=== PATIENT | male | born 1940 | race Caucasian/White ===

== ENCOUNTER 2021-04-05 10:20 | Outpatient (CLI) | payer MEDICARE | END 2021-04-05 10:21 | disposition home or self-care (01) | LOC: TBSIIMAG 10:20 | PROVIDERS: ATTEND Neurological Surgery | DX: M47.22 Other spondylosis with radiculopathy, cervical region (principal); M48.02 Spinal stenosis, cervical region; M43.12 Spondylolisthesis, cervical region | CPT/HCPCS: 72141 ==

== ENCOUNTER 2021-11-09 17:40 | Emergency (ER) | payer MEDICARE ==
[2021-11-09 18:54] LABS: Hemoglobin 13.4 g/dL (14.0-18.0); Mean Corpuscular HGB CONC 32.1 g/dL (32.0-36.0); Mean Corpuscular Hemoglobin 33.7 pg (27.0-31.0); Mean Platelet Volume 7.9 fL (7.4-10.4); Platelet Count 150 thou/uL (130-400); RBC Distribution Width 13.4 % (11.5-14.5); Red Blood Cell (RBC) Count 3.99 mill/uL (4.70-6.10); White Blood Cell (WBC) Count 4.9 thou/uL (4.8-10.8)
[2021-11-09 18:57] LABS: ALT (SGPT) 75 U/L (8-55); AST (SGOT) 44 U/L (5-34); Albumin 3.6 g/dL (3.4-4.8); Alkaline Phosphatase 119 U/L (40-110); Anion Gap 10 mmol/L (10-20); BUN (Urea Nitrogen) 55 mg/dL (8.4-25.7); Bilirubin, Total 1.1 mg/dL (0.2-1.2); CK (CPK) 149 U/L (30-200); Calc. Creatinine Clearance 0 mL/min (70-130); Calcium 9.1 mg/dL (7.8-10.44); Carbon Dioxide 21 mmol/L (23-31); Chloride 113 mmol/L (98-107); Globulin 1.8 g/dL (2.4-3.5); Glucose 94 mg/dL (83-110); Potassium 4.2 mmol/L (3.5-5.1); Protein, Total 5.4 g/dL (5.8-8.1); Sodium 140 mmol/L (136-145)
[2021-11-09 19:11] LABS: #Basophils 0.1 thou/uL (0.0-0.2); #Eosinphils 0.4 thou/uL (0.0-0.7); #Lymphocytes 1.1 thou/uL (1.20-3.40); #Monocytes 0.5 thou/uL (0.11-0.59); #Neutrophils 2.8 thou/uL (1.40-6.50); %Basophils 1.2 % (0.0-1.0); %Lymphocytes 23.1 % (21.0-51.0); %Neutrophils 57.7 % (42.0-75.0); MDiff Complete? YES; Macrocytosis SLIGHT = 6-15 cells (100X) (0-5/hpf); Ovalocytes SLIGHT = 2-5 cells (100X) (0-1/hpf)
== END 2021-11-09 21:19 | disposition short-term general hospital (02) ==
LOC: ERS 17:40
DX: R00.1 Bradycardia, unspecified (principal); I10 Essential (primary) hypertension; E78.00 Pure hypercholesterolemia, unspecified; Z79.899 Other long term (current) drug therapy
CPT/HCPCS: 36415; 71045; 80053; 82550; 83880; 84484; 85025; 93005

== ENCOUNTER 2021-11-15 13:12 | Outpatient (CLI) | payer MEDICARE, OTHER | END 2021-11-15 13:13 | disposition home or self-care (01) | LOC: CT 13:12 | PROVIDERS: ATTEND Nurse Practitioner Family | DX: S10.93XA Contusion of unspecified part of neck, initial encounter (principal) | CPT/HCPCS: 70490 ==

== ENCOUNTER 2021-11-22 16:46 | Inpatient (IN) | payer MEDICARE ==
[2021-11-22] MEDS ORDERED: Ondansetron PF 4 MG/2 ML Vial IVP PRN (21:16)
[2021-11-22] MEDS ORDERED: Acetaminophen 650 MG Suppository PR PRN (21:16)
[2021-11-22] MEDS: fentaNYL Citrate-0.9 % NaCl/PF 100 ML IVPB SCH (21:20)
[2021-11-22] MEDS ORDERED: Morphine 4 MG/ML VIAL SLOW IVP PRN (21:30)
[2021-11-22] MEDS ORDERED: Fentanyl BOLUS 250 ML IVPB PRN (21:30)
[2021-11-22] MEDS ORDERED: Fentanyl CADD 100 ML IV SCH (21:30)
[2021-11-22] MEDS ORDERED: DISCONTINUE PREVIOUS NARCOTIC PAIN MEDICATIONS AND BENZODIAZEPINES FS SCH (21:30)
[2021-11-22] MEDS ORDERED: Lorazepam 2 MG/ML VIAL SLOW IVP PRN (21:30)
[2021-11-22] MEDS ORDERED: Propofol 1,000 MG/100 ML VIAL IV PRN (21:30)
[2021-11-22] MEDS ORDERED: Ventilator Sedation Protocol 1 EACH FS SCH (21:30)
[2021-11-22] MEDS ORDERED: Propofol BOLUS 1,000 MG/100 ML VIAL IV PRN (21:30)
[2021-11-22] MEDS ORDERED: Lactated Ringer's 500 ML IV SCH (22:00)
[2021-11-22 22:02] LABS: Actual Bicarbonate (HCO3a) 18.2 mEq/L (22-28); Base Excess (BEa) -7.6 mEq/L (-2.0 to +3.0); Calcium, Ionized (arterial) 1.03 mmol/L (1.12-1.30); Hemoglobin (Hb) 10.5 g/dL (14.0-18.0); O2 Tension (PaO2), arterial 77.3 mmHg (> 60.0); Potassium - ABG Lab 3.75 mmol/L (3.70-5.30)
[2021-11-22 22:07] LABS: Puncture Site Arterial Line
[2021-11-22] MEDS ORDERED: Meropenem 500 MG in Sodium Chloride 0.9% 100 ML IVPB SCH (22:15)
[2021-11-22] MEDS: Lactated Ringer's 1,000 ML IV SCH (22:40)
[2021-11-22] MEDS: Norepinephrine 8 MG/0.9% NS 250 ML IVPB PRN (22:45)
[2021-11-22] MEDS: Sodium Bicarbonate Tab 325 MG TAB PER TUBE SCH (22:54)
[2021-11-23 04:20] LABS: INR-International Normal Ratio 1.3; PTT 44.9 sec (22.9-36.1); Prothrombin Time 16.2 sec (12.0-14.7)
[2021-11-23 04:25] LABS: ALT (SGPT) 566 U/L (8-55); AST (SGOT) 708 U/L (5-34); Albumin 2.6 g/dL (3.4-4.8); Alkaline Phosphatase 190 U/L (40-110); Anion Gap 25 mmol/L (10-20); BUN (Urea Nitrogen) 76 mg/dL (8.4-25.7); Bilirubin, Total 7.5 mg/dL (0.2-1.2); Calc. Creatinine Clearance 22 mL/min (70-130); Calcium 8.1 mg/dL (7.8-10.44); Carbon Dioxide 17 mmol/L (23-31); Chloride 101 mmol/L (98-107); Globulin 2.1 g/dL (2.4-3.5); Glucose 102 mg/dL (83-110); Potassium 3.8 mmol/L (3.5-5.1); Protein, Total 4.7 g/dL (5.8-8.1); Sodium 139 mmol/L (136-145)
[2021-11-23 04:26] LABS: Band 25 % (5-11); Elliptocytes SLIGHT = 2-5 cells (100X) (0-1/hpf); Lymphocytes 16 % (21-51); MDiff Complete? YES; Macrocytosis SLIGHT = 6-15 cells (100X) (0-5/hpf); Mean Corpuscular HGB CONC 32.9 g/dL (32.0-36.0); Mean Corpuscular Hemoglobin 34.3 pg (27.0-31.0); Mean Platelet Volume 9.2 fL (7.4-10.4); Monocytes 2 % (0-10); Neutrophil 57 % (42-75); Platelet Count 78 thou/uL (130-400); Platelet Morphology Comment Appears Decreased; Polychromasia SLIGHT = 2-3 cells (100X) (0-2/hpf); RBC Distribution Width 13.2 % (11.5-14.5); Red Blood Cell (RBC) Count 2.91 mill/uL (4.70-6.10); Schistocytes SLIGHT = 2-5 cells (100X) (0-1/hpf); White Blood Cell (WBC) Count 8.7 thou/uL (4.8-10.8)
[2021-11-23 04:32] LABS: D-Dimer Test 9.59 *mcg/mL (0.27-0.43)
[2021-11-23] MEDS: Sodium Bicarbonate Tab 325 MG TAB PER TUBE SCH ×3 (06:16→22:28)
[2021-11-23] MEDS ORDERED: Lactated Ringer's 500 ML IV SCH (08:15)
[2021-11-23 08:27] LABS: Actual Bicarbonate (HCO3a) 19.6 mEq/L (22-28); Base Excess (BEa) -5.5 mEq/L (-2.0 to +3.0); CO2 Tension 36.4 mmHg (35.0-45.0); Calcium, Ionized (arterial) 1.03 mmol/L (1.12-1.30); Carboxyhemoglobin (COHb) 0.6 gm% (0.0-3.0); O2 Tension (PaO2), arterial 100.2 mmHg (> 60.0); Potassium - ABG Lab 3.67 mmol/L (3.70-5.30); pH, Arterial 7.35 (7.35-7.45)
[2021-11-23 08:28] LABS: Puncture Site Arterial Line
[2021-11-23] MEDS ORDERED: Famotidine 20 MG TAB PO SCH (09:00)
[2021-11-23] MEDS: cefTRIAXone\\ROCEPHIN 2 GM in Sodium Chloride 0.9% 100 ML IVPB SCH (09:32)
[2021-11-23] MEDS: Pantoprazole 40 MG VIAL IVP SCH (09:34)
[2021-11-23] MEDS ORDERED: Meropenem 500 MG in Sodium Chloride 0.9% 100 ML IVPB SCH (10:00)
[2021-11-23] MEDS: Hydrocortisone Sod Succ/PF 100 mg/2 ml Vial IVP SCH ×2 (11:15→17:23)
[2021-11-23] MEDS: Norepinephrine 8 MG/0.9% NS 250 ML IVPB PRN (11:20)
[2021-11-23] MEDS: Vasopressin 20 UNIT, Admixture Fee 1 EACH in Sodium Chloride 0.9% 50 ML IV SCH ×2 (11:22→17:22)
[2021-11-23 12:01] LABS: Magnesium 1.9 mg/dL (1.6-2.6)
[2021-11-23] MEDS ORDERED: Magnesium 2 GM/50 ML(in water) 2 GM in Premix Bag 1 BAG IVPB SCH (12:15)
[2021-11-23] MEDS ORDERED: Heparin 10,000 UNITS/ 10 ML VIAL ONE (12:37)
[2021-11-23] MEDS: Lactated Ringer's 1,000 ML IV SCH (13:03)
[2021-11-23] MEDS: Acetaminophen 325 MG TAB PO PRN (22:28)
[2021-11-24] MEDS: Hydrocortisone Sod Succ/PF 100 mg/2 ml Vial IVP SCH ×4 (00:24→17:39)
[2021-11-24] MEDS: Vasopressin 20 UNIT, Admixture Fee 1 EACH in Sodium Chloride 0.9% 50 ML IV SCH ×3 (00:25→21:45)
[2021-11-24] MEDS: Lactated Ringer's 1,000 ML IV SCH ×2 (00:25→13:21)
[2021-11-24] MEDS: fentaNYL Citrate-0.9 % NaCl/PF 100 ML IVPB SCH (02:19)
[2021-11-24 04:20] LABS: Hemoglobin 9.5 g/dL (14.0-18.0); Mean Corpuscular Hemoglobin 33.1 pg (27.0-31.0); Platelet Count 71 thou/uL (130-400); RBC Distribution Width 13.3 % (11.5-14.5); Red Blood Cell (RBC) Count 2.86 mill/uL (4.70-6.10); White Blood Cell (WBC) Count 13.7 thou/uL (4.8-10.8)
[2021-11-24 04:37] LABS: ALT (SGPT) 411 U/L (8-55); AST (SGOT) 549 U/L (5-34); Albumin 2.4 g/dL (3.4-4.8); Alkaline Phosphatase 273 U/L (40-110); Anion Gap 23 mmol/L (10-20); BUN (Urea Nitrogen) 58 mg/dL (8.4-25.7); Calc. Creatinine Clearance 24 mL/min (70-130); Calcium 8.9 mg/dL (7.8-10.44); Carbon Dioxide 19 mmol/L (23-31); Chloride 100 mmol/L (98-107); Globulin 2.5 g/dL (2.4-3.5); Glucose 130 mg/dL (83-110); Potassium 4.1 mmol/L (3.5-5.1); Protein, Total 4.9 g/dL (5.8-8.1); Sodium 138 mmol/L (136-145)
[2021-11-24 04:39] LABS: INR-International Normal Ratio 1.1; PTT 51.8 sec (22.9-36.1); Prothrombin Time 14.8 sec (12.0-14.7)
[2021-11-24 04:58] LABS: D-Dimer Test 11.57 *mcg/mL (0.27-0.43)
[2021-11-24 05:04] LABS: Band 18 % (5-11); Lymphocytes 3 % (21-51); MDiff Complete? YES; Metamyelocyte 2 % (0-0); Monocytes 2 % (0-10); Myelocyte 4 % (0-0); Neutrophil 71 % (42-75); Nucleated RBC 1 % (0); Platelet Morphology Comment Appears Decreased
[2021-11-24] MEDS: Sodium Bicarbonate Tab 325 MG TAB PER TUBE SCH ×3 (06:30→22:03)
[2021-11-24] MEDS: Pantoprazole 40 MG VIAL IVP SCH (10:00)
[2021-11-24] MEDS: cefTRIAXone\\ROCEPHIN 2 GM in Sodium Chloride 0.9% 100 ML IVPB SCH (10:00)
[2021-11-24] MEDS: Insulin Regular 300 UNITS/3 ML VIAL SC PRN ×2 (11:07→17:04)
[2021-11-24] MEDS ORDERED: Heparin 10,000 UNITS/ 10 ML VIAL ONE (12:44)
[2021-11-25] MEDS: Lactated Ringer's 1,000 ML IV SCH (04:40)
[2021-11-25 04:53] LABS: ALT (SGPT) 297 U/L (8-55); AST (SGOT) 426 U/L (5-34); Albumin 2.4 g/dL (3.4-4.8); Alkaline Phosphatase 273 U/L (40-110); Anion Gap 19 mmol/L (10-20); BUN (Urea Nitrogen) 58 mg/dL (8.4-25.7); Bilirubin, Total 7.4 mg/dL (0.2-1.2); Calc. Creatinine Clearance 25 mL/min (70-130); Calcium 9.4 mg/dL (7.8-10.44); Carbon Dioxide 22 mmol/L (23-31); Chloride 99 mmol/L (98-107); Globulin 2.7 g/dL (2.4-3.5); Glucose 163 mg/dL (83-110); Potassium 4.1 mmol/L (3.5-5.1); Protein, Total 5.1 g/dL (5.8-8.1); Sodium 136 mmol/L (136-145)
[2021-11-25 05:02] LABS: PTT 53.1 sec (22.9-36.1)
[2021-11-25 05:03] LABS: Prothrombin Time 13.7 sec (12.0-14.7)
[2021-11-25 05:10] LABS: D-Dimer Test 12.69 *mcg/mL (0.27-0.43)
[2021-11-25] MEDS: Hydrocortisone Sod Succ/PF 100 mg/2 ml Vial IVP SCH ×5 (05:10→23:54)
[2021-11-25] MEDS: Insulin Regular 300 UNITS/3 ML VIAL SC PRN ×2 (05:11→21:45)
[2021-11-25] MEDS: Sodium Bicarbonate Tab 325 MG TAB PER TUBE SCH ×3 (05:11→21:45)
[2021-11-25 06:07] LABS: Mean Corpuscular HGB CONC 32.6 g/dL (32.0-36.0); Platelet Count 61 thou/uL (130-400); RBC Distribution Width 13.5 % (11.5-14.5); Red Blood Cell (RBC) Count 2.93 mill/uL (4.70-6.10); White Blood Cell (WBC) Count 13.9 thou/uL (4.8-10.8)
[2021-11-25 06:08] LABS: Band 24 % (5-11); Lymphocytes 5 % (21-51); MDiff Complete? YES; Macrocytosis SLIGHT = 6-15 cells (100X) (0-5/hpf); Neutrophil 71 % (42-75); Nucleated RBC 3 % (0); Platelet Morphology Comment Appears Decreased
[2021-11-25] MEDS: Pantoprazole 40 MG VIAL IVP SCH (10:00)
[2021-11-25] MEDS: cefTRIAXone\\ROCEPHIN 2 GM in Sodium Chloride 0.9% 100 ML IVPB SCH (10:00)
[2021-11-25] MEDS: Vasopressin 20 UNIT, Admixture Fee 1 EACH in Sodium Chloride 0.9% 50 ML IV SCH (10:52)
[2021-11-25] MEDS: Norepinephrine 8 MG/0.9% NS 250 ML IVPB PRN (12:16)
[2021-11-25] MEDS ORDERED: Heparin 10,000 UNITS/ 10 ML VIAL ONE (12:41)
[2021-11-25] MEDS: fentaNYL Citrate-0.9 % NaCl/PF 100 ML IVPB SCH (16:50)
[2021-11-26] MEDS: Sodium Bicarbonate Tab 325 MG TAB PER TUBE SCH ×3 (05:12→23:13)
[2021-11-26] MEDS: Hydrocortisone Sod Succ/PF 100 mg/2 ml Vial IVP SCH ×4 (05:12→23:10)
[2021-11-26 05:31] LABS: Hemoglobin 9.9 g/dL (14.0-18.0); INR-International Normal Ratio 1.1; Mean Platelet Volume 6.7 fL (7.4-10.4); Platelet Count 47 thou/uL (130-400); Prothrombin Time 14.3 sec (12.0-14.7); RBC Distribution Width 13.6 % (11.5-14.5); Red Blood Cell (RBC) Count 3.01 mill/uL (4.70-6.10); White Blood Cell (WBC) Count 13.5 thou/uL (4.8-10.8)
[2021-11-26 05:45] LABS: ALT (SGPT) 212 U/L (8-55); AST (SGOT) 342 U/L (5-34); Albumin 2.2 g/dL (3.4-4.8); Alkaline Phosphatase 243 U/L (40-110); Anion Gap 19 mmol/L (10-20); BUN (Urea Nitrogen) 62 mg/dL (8.4-25.7); Bilirubin, Total 5.7 mg/dL (0.2-1.2); Calc. Creatinine Clearance 28 mL/min (70-130); Carbon Dioxide 24 mmol/L (23-31); Chloride 99 mmol/L (98-107); Globulin 3.1 g/dL (2.4-3.5); Glucose 148 mg/dL (83-110); Potassium 4.6 mmol/L (3.5-5.1); Protein, Total 5.3 g/dL (5.8-8.1); Sodium 137 mmol/L (136-145)
[2021-11-26 06:07] LABS: Band 18 % (5-11); Lymphocytes 1 % (21-51); MDiff Complete? YES; Macrocytosis SLIGHT = 6-15 cells (100X) (0-5/hpf); Monocytes 5 % (0-10); Myelocyte 1 % (0-0); Neutrophil 75 % (42-75); Platelet Morphology Comment Appears Decreased
[2021-11-26] MEDS ORDERED: Heparin 10,000 UNITS/ 10 ML VIAL ONE (08:52)
[2021-11-26] MEDS: cefTRIAXone\\ROCEPHIN 2 GM in Sodium Chloride 0.9% 100 ML IVPB SCH (09:58)
[2021-11-26] MEDS: Pantoprazole 40 MG VIAL IVP SCH (09:58)
[2021-11-26] MEDS: Insulin Regular 300 UNITS/3 ML VIAL SC PRN ×2 (10:41→18:41)
[2021-11-26] MEDS: Norepinephrine 8 MG/0.9% NS 250 ML IVPB PRN (11:10)
[2021-11-26] MEDS: fentaNYL Citrate-0.9 % NaCl/PF 100 ML IVPB SCH (14:54)
[2021-11-26] MEDS: Vasopressin 20 UNIT, Admixture Fee 1 EACH in Sodium Chloride 0.9% 50 ML IV SCH ×2 (16:22)
[2021-11-27] MEDS ORDERED: Ciprofloxacin 500 MG TAB PER TUBE SCH (01:00)
[2021-11-27] MEDS: Norepinephrine 8 MG/0.9% NS 250 ML IVPB PRN ×2 (01:13→10:58)
[2021-11-27 04:59] LABS: Anion Gap 22 mmol/L (10-20); BUN (Urea Nitrogen) 70 mg/dL (8.4-25.7); Calc. Creatinine Clearance 27 mL/min (70-130); Calcium 9.1 mg/dL (7.8-10.44); Carbon Dioxide 20 mmol/L (23-31); Chloride 98 mmol/L (98-107); Glucose 146 mg/dL (83-110); Potassium 4.6 mmol/L (3.5-5.1); Sodium 135 mmol/L (136-145)
[2021-11-27] MEDS: Hydrocortisone Sod Succ/PF 100 mg/2 ml Vial IVP SCH ×4 (05:29→23:59)
[2021-11-27] MEDS: Sodium Bicarbonate Tab 325 MG TAB PER TUBE SCH ×3 (05:29→21:58)
[2021-11-27 06:44] LABS: Band 14 % (5-11); Hemoglobin 10.3 g/dL (14.0-18.0); Lymphocytes 1 % (21-51); MDiff Complete? YES; Mean Corpuscular Hemoglobin 34.7 pg (27.0-31.0); Metamyelocyte 1 % (0-0); Monocytes 4 % (0-10); Myelocyte 1 % (0-0); Neutrophil 79 % (42-75); Nucleated RBC 1 % (0); Platelet Count 52 thou/uL (130-400); Platelet Morphology Comment Appears Decreased; RBC Distribution Width 13.6 % (11.5-14.5); Red Blood Cell (RBC) Count 2.97 mill/uL (4.70-6.10); White Blood Cell (WBC) Count 17.2 thou/uL (4.8-10.8)
[2021-11-27] MEDS ORDERED: Heparin 10,000 UNITS/ 10 ML VIAL ONE (08:55)
[2021-11-27] MEDS: cefTRIAXone\\ROCEPHIN 2 GM in Sodium Chloride 0.9% 100 ML IVPB SCH (09:21)
[2021-11-27] MEDS: Pantoprazole 40 MG VIAL IVP SCH (09:24)
[2021-11-27] MEDS: Acetaminophen 325 MG TAB PO PRN (09:24)
[2021-11-27] MEDS ORDERED: Metamucil PACK PO SCH (10:15)
[2021-11-27] MEDS: Insulin Regular 300 UNITS/3 ML VIAL SC PRN (22:09)
[2021-11-28 05:04] LABS: #Lymphocytes 0.5 thou/uL (1.20-3.40); #Monocytes 0.4 thou/uL (0.11-0.59); #Neutrophils 13.2 thou/uL (1.40-6.50); %Eosinophils 0.3 % (0.0-10.0); %Lymphocytes 3.8 % (21.0-51.0); %Monocytes 2.9 % (0.0-10.0); Hemoglobin 10.2 g/dL (14.0-18.0); Mean Corpuscular HGB CONC 31.8 g/dL (32.0-36.0); Mean Corpuscular Hemoglobin 33.4 pg (27.0-31.0); Mean Platelet Volume 10.9 fL (7.4-10.4); Platelet Count 73 thou/uL (130-400); RBC Distribution Width 13.7 % (11.5-14.5); Red Blood Cell (RBC) Count 3.05 mill/uL (4.70-6.10); White Blood Cell (WBC) Count 14.3 thou/uL (4.8-10.8)
[2021-11-28 05:09] LABS: Fibrinogen 728 mg/dL (253-463)
[2021-11-28 05:10] LABS: INR-International Normal Ratio 1.2; PTT 38.6 sec (22.9-36.1); Prothrombin Time 14.9 sec (12.0-14.7)
[2021-11-28] MEDS: Norepinephrine 8 MG/0.9% NS 250 ML IVPB PRN (05:10)
[2021-11-28] MEDS: Hydrocortisone Sod Succ/PF 100 mg/2 ml Vial IVP SCH ×3 (05:10→18:17)
[2021-11-28] MEDS: Sodium Bicarbonate Tab 325 MG TAB PER TUBE SCH ×3 (05:10→21:32)
[2021-11-28 05:18] LABS: D-Dimer Test 11.38 *mcg/mL (0.27-0.43)
[2021-11-28 05:26] LABS: Anion Gap 22 mmol/L (10-20); BUN (Urea Nitrogen) 85 mg/dL (8.4-25.7); Calc. Creatinine Clearance 26 mL/min (70-130); Calcium 9.5 mg/dL (7.8-10.44); Carbon Dioxide 22 mmol/L (23-31); Chloride 97 mmol/L (98-107); Glucose 146 mg/dL (83-110); Potassium 4.6 mmol/L (3.5-5.1); Sodium 136 mmol/L (136-145)
[2021-11-28 05:32] LABS: ALT (SGPT) 115 U/L (8-55); AST (SGOT) 184 U/L (5-34); Albumin 2.2 g/dL (3.4-4.8); Alkaline Phosphatase 190 U/L (40-110); Bilirubin, Direct 3.1 mg/dL (0.1-0.3); Bilirubin, Total 4.2 mg/dL (0.2-1.2); Protein, Total 5.4 g/dL (5.8-8.1)
[2021-11-28 05:54] LABS: Platelet Count 77 thou/uL (130-400)
[2021-11-28 07:12] LABS: Actual Bicarbonate (HCO3a) 17.5 mEq/L (22-28); Base Excess (BEa) -4.6 mEq/L (-2.0 to +3.0); Calcium, Ionized (arterial) 1.16 mmol/L (1.12-1.30); Carboxyhemoglobin (COHb) 1.4 gm% (0.0-3.0); Hemoglobin (Hb) 11.3 g/dL (14.0-18.0); O2 Tension (PaO2), arterial 70.4 mmHg (> 60.0); Potassium - ABG Lab 4.38 mmol/L (3.70-5.30); pH, Arterial 7.48 (7.35-7.45)
[2021-11-28 07:38] LABS: CO2 Tension 24.2 mmHg (35.0-45.0); Puncture Site LRA
[2021-11-28] MEDS: Metamucil PACK PO SCH (09:09)
[2021-11-28] MEDS: Pantoprazole 40 MG VIAL IVP SCH (09:09)
[2021-11-28] MEDS: cefTRIAXone\\ROCEPHIN 2 GM in Sodium Chloride 0.9% 100 ML IVPB SCH (12:45)
[2021-11-28] MEDS ORDERED: Heparin 10,000 UNITS/ 10 ML VIAL ONE (14:40)
[2021-11-28] MEDS: Cefepime 1 GM in Sodium Chloride 0.9% 100 ML IVPB SCH (16:20)
[2021-11-29] MEDS: Hydrocortisone Sod Succ/PF 100 mg/2 ml Vial IVP SCH ×4 (00:09→18:23)
[2021-11-29 04:22] LABS: Anion Gap 23 mmol/L (10-20); BUN (Urea Nitrogen) 88 mg/dL (8.4-25.7); Calc. Creatinine Clearance 27 mL/min (70-130); Calcium 9.4 mg/dL (7.8-10.44); Carbon Dioxide 20 mmol/L (23-31); Chloride 97 mmol/L (98-107); Glucose 133 mg/dL (83-110); Potassium 4.6 mmol/L (3.5-5.1); Sodium 135 mmol/L (136-145)
[2021-11-29] MEDS: Sodium Bicarbonate Tab 325 MG TAB PER TUBE SCH ×3 (05:16→22:00)
[2021-11-29 05:32] LABS: Band 19 % (5-11); Hemoglobin 9.6 g/dL (14.0-18.0); Lymphocytes 2 % (21-51); MDiff Complete? YES; Mean Corpuscular HGB CONC 31.8 g/dL (32.0-36.0); Mean Corpuscular Hemoglobin 33.4 pg (27.0-31.0); Mean Platelet Volume 11.7 fL (7.4-10.4); Monocytes 3 % (0-10); Neutrophil 76 % (42-75); Platelet Count 57 thou/uL (130-400); Platelet Morphology Comment Appears Decreased; RBC Distribution Width 13.7 % (11.5-14.5); Red Blood Cell (RBC) Count 2.87 mill/uL (4.70-6.10); White Blood Cell (WBC) Count 12.2 thou/uL (4.8-10.8)
[2021-11-29] MEDS ORDERED: Heparin 10,000 UNITS/ 10 ML VIAL ONE (08:41)
[2021-11-29] MEDS: Pantoprazole 40 MG VIAL IVP SCH (09:23)
[2021-11-29] MEDS: Metamucil PACK PO SCH (09:34)
[2021-11-29 12:23] LABS: INR-International Normal Ratio 1.1; Prothrombin Time 14.8 sec (12.0-14.7)
[2021-11-29 12:24] VITALS: BMI 35.3
[2021-11-29] MEDS: Cefepime 1 GM in Sodium Chloride 0.9% 100 ML IVPB SCH (15:32)
[2021-11-30] MEDS: Hydrocortisone Sod Succ/PF 100 mg/2 ml Vial IVP SCH ×4 (00:15→17:18)
[2021-11-30 04:54] LABS: Anion Gap 21 mmol/L (10-20); BUN (Urea Nitrogen) 79 mg/dL (8.4-25.7); Calc. Creatinine Clearance 29 mL/min (70-130); Calcium 9.3 mg/dL (7.8-10.44); Carbon Dioxide 23 mmol/L (23-31); Chloride 95 mmol/L (98-107); Glucose 123 mg/dL (83-110); Potassium 4.1 mmol/L (3.5-5.1); Sodium 135 mmol/L (136-145)
[2021-11-30 04:56] LABS: ALT (SGPT) 66 U/L (8-55); AST (SGOT) 105 U/L (5-34); Alkaline Phosphatase 136 U/L (40-110); Anion Gap 19 mmol/L (10-20); BUN (Urea Nitrogen) 79 mg/dL (8.4-25.7); Bilirubin, Direct 2.7 mg/dL (0.1-0.3); Bilirubin, Total 3.7 mg/dL (0.2-1.2); Calc. Creatinine Clearance 29 mL/min (70-130); Carbon Dioxide 24 mmol/L (23-31); Chloride 98 mmol/L (98-107); Globulin 3.2 g/dL (2.4-3.5); Glucose 122 mg/dL (83-110); Magnesium 2.4 mg/dL (1.6-2.6); Potassium 4.2 mmol/L (3.5-5.1); Protein, Total 5.2 g/dL (5.8-8.1); Sodium 137 mmol/L (136-145)
[2021-11-30 04:57] LABS: INR-International Normal Ratio 1.2; Prothrombin Time 15.3 sec (12.0-14.7)
[2021-11-30 04:58] LABS: Fibrinogen 686 mg/dL (253-463)
[2021-11-30 05:05] LABS: Band 19 % (5-11); Hemoglobin 9.3 g/dL (14.0-18.0); Lymphocytes 9 % (21-51); MDiff Complete? YES; Mean Corpuscular HGB CONC 31.3 g/dL (32.0-36.0); Mean Corpuscular Hemoglobin 33.2 pg (27.0-31.0); Mean Platelet Volume 10.9 fL (7.4-10.4); Monocytes 4 % (0-10); Neutrophil 68 % (42-75); Platelet Count 96 thou/uL (130-400); RBC Distribution Width 14.3 % (11.5-14.5); Red Blood Cell (RBC) Count 2.81 mill/uL (4.70-6.10); White Blood Cell (WBC) Count 10.1 thou/uL (4.8-10.8)
[2021-11-30 05:06] LABS: Platelet Count 96 thou/uL (130-400)
[2021-11-30 05:08] LABS: D-Dimer Test 11.84 *mcg/mL (0.27-0.43)
[2021-11-30] MEDS: Sodium Bicarbonate Tab 325 MG TAB PER TUBE SCH ×3 (05:10→21:32)
[2021-11-30 07:38] LABS: Actual Bicarbonate (HCO3a) 22.6 mEq/L (22-28); Base Excess (BEa) -1.2 mEq/L (-2.0 to +3.0); Calcium, Ionized (arterial) 1.15 mmol/L (1.12-1.30); Carboxyhemoglobin (COHb) 1.2 gm% (0.0-3.0); Hemoglobin (Hb) 8.9 g/dL (14.0-18.0); O2 Tension (PaO2), arterial 74.1 mmHg (> 60.0); Potassium - ABG Lab 4.14 mmol/L (3.70-5.30); pH, Arterial 7.44 (7.35-7.45)
[2021-11-30 07:54] LABS: Puncture Site LBA
[2021-11-30] MEDS: Pantoprazole 40 MG VIAL IVP SCH (09:54)
[2021-11-30] MEDS: Metamucil PACK PO SCH (09:54)
[2021-11-30] MEDS: Norepinephrine 8 MG/0.9% NS 250 ML IVPB PRN (13:49)
[2021-11-30] MEDS ORDERED: Heparin 10,000 UNITS/ 10 ML VIAL ONE (14:07)
[2021-11-30] MEDS ORDERED: Cefepime 1 GM in Sodium Chloride 0.9% 100 ML IVPB SCH (16:00)
[2021-12-01] MEDS: Hydrocortisone Sod Succ/PF 100 mg/2 ml Vial IVP SCH ×2 (00:08→05:41)
[2021-12-01 04:30] LABS: #Lymphocytes 0.5 thou/uL (1.20-3.40); #Monocytes 0.5 thou/uL (0.11-0.59); #Neutrophils 6.6 thou/uL (1.40-6.50); %Eosinophils 0.1 % (0.0-10.0); %Lymphocytes 6.9 % (21.0-51.0); %Monocytes 6.8 % (0.0-10.0); %Neutrophils 86.2 % (42.0-75.0); Hemoglobin 9.2 g/dL (14.0-18.0); Mean Corpuscular HGB CONC 30.7 g/dL (32.0-36.0); Mean Corpuscular Hemoglobin 33.2 pg (27.0-31.0); Mean Platelet Volume 10.3 fL (7.4-10.4); Platelet Count 129 thou/uL (130-400); RBC Distribution Width 14.4 % (11.5-14.5); Red Blood Cell (RBC) Count 2.78 mill/uL (4.70-6.10); White Blood Cell (WBC) Count 7.7 thou/uL (4.8-10.8)
[2021-12-01 04:52] LABS: ALT (SGPT) 57 U/L (8-55); AST (SGOT) 96 U/L (5-34); Alkaline Phosphatase 130 U/L (40-110); Anion Gap 21 mmol/L (10-20); BUN (Urea Nitrogen) 75 mg/dL (8.4-25.7); Bilirubin, Direct 2.5 mg/dL (0.1-0.3); Bilirubin, Total 3.4 mg/dL (0.2-1.2); Calc. Creatinine Clearance 30 mL/min (70-130); Calcium 9.6 mg/dL (7.8-10.44); Carbon Dioxide 23 mmol/L (23-31); Chloride 96 mmol/L (98-107); Globulin 3.3 g/dL (2.4-3.5); Glucose 133 mg/dL (83-110); Magnesium 2.4 mg/dL (1.6-2.6); Potassium 4.5 mmol/L (3.5-5.1); Protein, Total 5.3 g/dL (5.8-8.1); Sodium 135 mmol/L (136-145)
[2021-12-01] MEDS: Sodium Bicarbonate Tab 325 MG TAB PER TUBE SCH (05:41)
[2021-12-01 07:37] LABS: Actual Bicarbonate (HCO3a) 23.6 mEq/L (22-28); Base Excess (BEa) -1.8 mEq/L (-2.0 to +3.0); CO2 Tension 42.9 mmHg (35.0-45.0); Calcium, Ionized (arterial) 1.22 mmol/L (1.12-1.30); Carboxyhemoglobin (COHb) 0.8 gm% (0.0-3.0); Hemoglobin (Hb) 9.3 g/dL (14.0-18.0); O2 Tension (PaO2), arterial 77.8 mmHg (> 60.0); Potassium - ABG Lab 4.46 mmol/L (3.70-5.30); pH, Arterial 7.36 (7.35-7.45)
[2021-12-01 07:42] LABS: Puncture Site LRA
[2021-12-01 07:43] LABS: ALV-art Gradient 153.775 mmHg (0-20)
[2021-12-01] MEDS: Metamucil PACK PO SCH (08:09)
[2021-12-01] MEDS: Pantoprazole 40 MG VIAL IVP SCH (08:09)
[2021-12-01 08:16] VITALS: TEMP 98.5
[2021-12-01 10:31] VITALS: BP 86/37
[2021-12-01] MEDS ORDERED: Lorazepam 2 MG/ML VIAL ONE (10:38)
== END 2021-12-01 10:37 | disposition hospice, inpatient (51) | DRG 870 ==
LOC: CCU 20:56
PROVIDERS: ADMIT Hospitalist; ATTEND Internal Medicine
PROC: 3E043XZ Introduction of Vasopressor into Central Vein, Percutaneous Approach (ICD-10-PCS; 2021-11-21)
PROC: 5A1D70Z Performance of Urinary Filtration, Intermittent, Less than 6 Hours Per Day (ICD-10-PCS; 2021-11-21)
PROC: 5A1955Z Respiratory Ventilation, Greater than 96 Consecutive Hours (ICD-10-PCS; principal; 2021-11-22)
PROC: 3E033XZ Introduction of Vasopressor into Peripheral Vein, Percutaneous Approach (ICD-10-PCS; 2021-11-22)
PROC: 3E03329 Introduction of Other Anti-infective into Peripheral Vein, Percutaneous Approach (ICD-10-PCS; 2021-11-22)
PROC: 5A1D70Z Performance of Urinary Filtration, Intermittent, Less than 6 Hours Per Day (ICD-10-PCS; 2021-11-22)
PROC: 0BH17EZ Insertion of Endotracheal Airway into Trachea, Via Natural or Artificial Opening (ICD-10-PCS; 2021-11-22)
PROC: 02HV33Z Insertion of Infusion Device into Superior Vena Cava, Percutaneous Approach (ICD-10-PCS; 2021-11-22)
PROC: B548ZZA Ultrasonography of Superior Vena Cava, Guidance (ICD-10-PCS; 2021-11-22)
PROC: 03HY32Z Insertion of Monitoring Device into Upper Artery, Percutaneous Approach (ICD-10-PCS; 2021-11-22)
DX: A41.51 Sepsis due to Escherichia coli [E. coli] (principal); R65.21 Severe sepsis with septic shock; G93.41 Metabolic encephalopathy; J96.01 Acute respiratory failure with hypoxia; K72.00 Acute and subacute hepatic failure without coma; D65 Disseminated intravascular coagulation [defibrination syndrome]; G92.8 Other toxic encephalopathy; N17.0 Acute kidney failure with tubular necrosis; J69.0 Pneumonitis due to inhalation of food and vomit; J94.2 Hemothorax; N18.4 Chronic kidney disease, stage 4 (severe); J90 Pleural effusion, not elsewhere classified; D62 Acute posthemorrhagic anemia; I48.19 Other persistent atrial fibrillation; N39.0 Urinary tract infection, site not specified; R18.8 Other ascites; Z66 Do not resuscitate; Z51.5 Encounter for palliative care; Z20.822 Contact with and (suspected) exposure to COVID-19; I12.9 Hypertensive chronic kidney disease with stage 1 through stage 4 chronic kidney disease, or unspecified chronic kidney disease; E78.5 Hyperlipidemia, unspecified; F17.210 Nicotine dependence, cigarettes, uncomplicated; M79.81 Nontraumatic hematoma of soft tissue; E87.70 Fluid overload, unspecified; E78.00 Pure hypercholesterolemia, unspecified; E66.01 Morbid (severe) obesity due to excess calories; I48.0 Paroxysmal atrial fibrillation; N32.0 Bladder-neck obstruction; Z68.34 Body mass index [BMI] 34.0-34.9, adult; Z79.899 Other long term (current) drug therapy; Z78.1 Physical restraint status; R79.1 Abnormal coagulation profile; R00.1 Bradycardia, unspecified; E88.09 Other disorders of plasma-protein metabolism, not elsewhere classified; I34.0 Nonrheumatic mitral (valve) insufficiency; N40.1 Benign prostatic hyperplasia with lower urinary tract symptoms; R58 Hemorrhage, not elsewhere classified; R33.8 Other retention of urine; K80.80 Other cholelithiasis without obstruction; R13.10 Dysphagia, unspecified; R53.81 Other malaise; Z82.49 Family history of ischemic heart disease and other diseases of the circulatory system; Z80.9 Family history of malignant neoplasm, unspecified; Z82.5 Family history of asthma and other chronic lower respiratory diseases; Z68.36 Body mass index [BMI] 36.0-36.9, adult; J02.9 Acute pharyngitis, unspecified; S01.93XA Puncture wound without foreign body of unspecified part of head, initial encounter
CPT/HCPCS: 31500; 36415; 36416; 36600; 51702; 70450; 70490; 71045; 74018; 74176; 78451; 80048; 80053; 80076; 80202; 81001; 82140; 82150; 82805; 82945; 83010; 83605; 83615; 83630; 83735; 84100; 84157; 85025; 85046; 85049; 85300; 85362; 85379; 85384; 85610; 85730; 86704; 86706; 86803; 86850; 86900; 86901; 87040; 87045; 87046; 87070; 87076; 87077; 87086; 87116; 87149; 87186; 87205; 87206; 87324; 87340; 87427; 87449; 88112; 88305; 89051; 90935; 93005; 93306; 93970; 94002; 94003; 94640; 94660; 94760; 96374; 96375; A9540; C9113; G0257; J0132; J0360; J0692; J0696; J1644; J1720; J1815; J1940; J2185; J2250; J2597; J2704; J2765; J3370; J3411; J3475; J3490; J7050; J7070; J7120; J7168; P9047; U0002; U0003; U0005

== ENCOUNTER 2021-12-01 10:59 | Inpatient (IN) | payer MEDICARE, OTHER ==
[2021-12-01] MEDS ORDERED: Promethazine HCl 25 MG SUPP PR PRN (11:15)
[2021-12-01] MEDS ORDERED: diphenhydrAMINE 50 MG/ML VIAL IVP PRN (11:15)
[2021-12-01] MEDS ORDERED: Lorazepam 2 MG/ML VIAL SLOW IVP PRN ×2 (11:15→11:45)
[2021-12-01] MEDS ORDERED: Hyoscyamine Sulfate SL 0.125 mg Tablet SL PRN (11:15)
[2021-12-01] MEDS ORDERED: Scopolamine 1.5 mg/72 hour Patch TOP PRN (11:15)
[2021-12-01] MEDS ORDERED: Acetaminophen 650 MG Suppository PR PRN (11:15)
[2021-12-01] MEDS ORDERED: Ondansetron PF 4 MG/2 ML Vial IVP PRN (11:15)
[2021-12-01] MEDS ORDERED: Morphine 4 MG/ML VIAL SLOW IVP PRN (11:43)
[2021-12-01] MEDS ORDERED: Haloperidol Lactate 5 MG/ML VIAL SLOW IVP PRN (11:44)
[2021-12-01 20:44] VITALS: BP 70/39; TEMP 97.7
== END 2021-12-01 23:12 | disposition expired | DRG 951 ==
LOC: CCU 10:59 → T4-B 15:35
PROVIDERS: ADMIT Family Medicine; ATTEND Internal Medicine
DX: Z51.5 Encounter for palliative care (principal); J96.91 Respiratory failure, unspecified with hypoxia; A41.9 Sepsis, unspecified organism; D65 Disseminated intravascular coagulation [defibrination syndrome]; N39.0 Urinary tract infection, site not specified; J94.2 Hemothorax; I48.91 Unspecified atrial fibrillation; N19 Unspecified kidney failure; I95.9 Hypotension, unspecified; Z79.01 Long term (current) use of anticoagulants
CPT/HCPCS: J2060; J2270